=== PATIENT | male | born 1960 | race Caucasian/White ===

== ENCOUNTER → 2024-10-22 | Outpatient (CLI) | payer MEDICARE ==
[~2024-10-22] MED LIST: PROHANCE 279.3MG/ML 15ML VIAL ONE; PROHANCE 279.3MG/ML 5ML VIAL ONE
== END ==
LOC: M PLAIMG 10:53
PROVIDERS: ATTEND Urology
DX: N28.1 Cyst of kidney, acquired (principal); Z90.5 Acquired absence of kidney; Z48.816 Encounter for surgical aftercare following surgery on the genitourinary system
CPT/HCPCS: 74183; A9576